=== PATIENT | female | born 1995 | race Caucasian/White ===

== ENCOUNTER → 2017-01-12 | Outpatient (CLI) | payer BC, OTHER ==
--- NOTE | 2017-01-12 12:08 | DIAGNOSTIC IMAGING REPORT ---
RIGHT HEEL MIN 2 VIEWS CLINICAL HISTORY: Right heel pain COMPARISON: None. DISCUSSION: No fractures are visualized. There are no erosive or destructive changes. There is no significant calcaneal spurring. IMPRESSION: No bony abnormalities identified. Electronically signed by: Guero Cunningham M.D. 01/12/2017 12:06 PM Dictated Date/Time: 01/12/2017 12:06 PM
== END | disposition home or self-care (01) ==
LOC: C.RDSM 11:15
PROVIDERS: ATTEND Family Medicine
DX: M79.671 Pain in right foot (principal)

== ENCOUNTER → 2017-01-14 | Outpatient (CLI) | payer BC, OTHER ==
--- NOTE | 2017-01-14 19:43 | DIAGNOSTIC IMAGING REPORT ---
MRI OF THE RIGHT ANKLE AND HINDFOOT WITHOUT CONTRAST CLINICAL HISTORY: Persistent and worsening plantar fasciitis. Evaluate for calcaneal stress fracture. COMPARISON STUDY: Right heel radiograph January 12, 2017. TECHNIQUE: Utilizing a 1.5 Jennifer magnet and dedicated coil, multiplanar, multiecho imaging of the right ankle and hindfoot was performed without intravenous or intraarticular contrast. FINDINGS: A marker was placed on the skin at site of maximal pain. This overlies the plantar aspect of the posterior calcaneus. There is mild thickening of the proximal plantar fascia with mild edema within the adjacent soft tissues as well as mild edema within the adjacent inferior aspect of the calcaneus. There is no evidence for stress fracture within the right calcaneus. Talar dome is intact. The Achilles tendon is normal. The flexor, extensor and peroneal tendons are intact. Intrinsic ligaments of the right ankle are intact. No mass or fluid collection is shown adjacent to the right ankle or hindfoot. Alignment of the right midfoot is anatomic. No additional sites of marrow edema are present. IMPRESSION: 1. Findings consistent with plantar fasciitis. Mild thickening of the proximal plantar fascia with mild edema within the adjacent soft tissues and adjacent portions of the calcaneus. 2. No evidence for right calcaneal stress fracture. Electronically signed by: Toby Pond M.D. 01/14/2017 7:42 PM Dictated Date/Time: 01/14/2017 7:37 PM
== END | disposition home or self-care (01) ==
LOC: C.MRI 16:57
PROVIDERS: ATTEND Family Medicine
DX: M79.671 Pain in right foot (principal)

== ENCOUNTER → 2017-06-08 | Outpatient (CLI) | payer BC, OTHER | LOC: C.LABSPEC 17:39 | PROVIDERS: ATTEND Internal Medicine | DX: J02.9 Acute pharyngitis, unspecified (principal) ==